=== PATIENT | male | born 1945 | race Caucasian/White ===

== ENCOUNTER → 2017-02-14 | Outpatient (CLI) | payer MEDICARE, OTHER ==
[~2017-02-14] MED LIST: ACET-1757 PO; ALLO100T30 PO; AMLO10TA4 PO; ASPI-496 PO; ATOR20TA PO; CARV3.1212 PO; CHOL-6 PO; CHOL200024 PO; CLON1TAB PO; COLC0.6T37 PO; DIPH25CA61 IV; DIPH25CA61 PO; DIVA500T2 PO; FLUT1AER INH; FURO-92 PO; FURO20TA3 PO; GUAI-110 PO; HYDR-3240 PO; HYDR-3307 PO; HYDR25TA6 PO; LISI-170 PO; MAGN250T8 PO; MAGN400T26 PO; MAGN400T7 PO; METO-93 PO; METO-95 PO; METO25TA2 PO; METO25TA91 PO; METO50TA4 PO; MORP60TA22 PO; NAFC2FRO IV; ONDA4TAB7 PO; PANT20TA3 PO; POLY17PO5 PO; POTA10TA11 PO; POTA20TA89 PO; RIOC1TAB PO; RIVA15TA PO; RIVA20TA PO; SERT50TA PO; SIMV20TA PO; TICA90TA PO; ZOLP10TA PO
== END ==
LOC: STAR 14:09
PROVIDERS: ATTEND Surgery Vascular Surgery
DX: Z01.818 Encounter for other preprocedural examination (principal); R94.31 Abnormal electrocardiogram [ECG] [EKG]
CPT/HCPCS: 93005

== ENCOUNTER 2017-02-19 06:10 | Day surgery (SDC) | payer MEDICARE, OTHER ==
[2017-02-14 14:49] VITALS: BP 177/92
[~2017-02-19] VITALS: Ht 175.3 cm; Wt 106.0 kg
[2017-02-19] MEDS ORDERED: LIDOCAINE 1%, 2ML ONE (07:01)
[2017-02-19] MEDS ORDERED: PROPOFOL 10 MG/ML, 20ML ONE (07:04)
[2017-02-19] MEDS ORDERED: GLYCOPYRROLATE 0.2MG/1ML, 5ML ONE (07:04)
[2017-02-19] MEDS ORDERED: DEXAMETHASONE 4 MG/ML, 1ML ONE (07:04)
[2017-02-19] MEDS ORDERED: ROCURONIUM 10 MG/ML,10ML ONE (07:04)
[2017-02-19] MEDS ORDERED: MIDAZOLAM 1 MG/ML, 2ML ONE (07:04)
[2017-02-19] MEDS ORDERED: CEFAZOLIN 1,000 MG ONE (07:04)
[2017-02-19] MEDS ORDERED: NEOSTIGMINE 1 MG/ML, 10ML ONE (07:04)
[2017-02-19] MEDS ORDERED: FENTANYL PF 250 MCG/5ML ONE (07:04)
[2017-02-19] MEDS ORDERED: SUCCINYLCHOLINE 20 MG/ML, 10ML ONE (07:04)
[2017-02-19] MEDS ORDERED: ONDANSETRON 2MG/ML, 2ML ONE (07:04)
[2017-02-19] MEDS ORDERED: LACTATED RINGERS 1,000 ML IV SCH (07:43)
[2017-02-19] MEDS ORDERED: BUPIVACAINE/PF 0.5% ONE (07:51)
[2017-02-19] MEDS ORDERED: EPINEPHRINE 1 MG/ML, 1ML ONE (07:52)
[2017-02-19] MEDS ORDERED: LIDOCAINE 1%, 2ML SQ PRN (08:00)
[2017-02-19] MEDS ORDERED: ACETAMINOPHEN 325 MG TABLET PO PRN (08:00)
[2017-02-19] MEDS ORDERED: HYDROmorphone 1 MG/ML, 1ML IV PRN (08:00)
[2017-02-19] MEDS ORDERED: HYDROcodone/APAP 7.5-325MG/15ML UDC PO PRN (08:00)
[2017-02-19] MEDS ORDERED: OXYcodone 5 MG/5 ML ORAL.SOL UDC PO PRN (08:00)
[2017-02-19] MEDS ORDERED: hydrALAzine 20 MG/ML, 1ML IV PRN (08:00)
[2017-02-19] MEDS ORDERED: FENTANYL PF 100 MCG/2ML IV PRN (08:00)
[2017-02-19] MEDS ORDERED: LABETALOL 5MG/ML, 20ML IV PRN (08:00)
[2017-02-19] MEDS ORDERED: ONDANSETRON 2MG/ML, 2ML IVPush PRN (08:00)
[2017-02-19] MEDS ORDERED: HYDROcodone/APAP 7.5-325MG/15ML UDC ONE (09:14)
[2017-02-19] MEDS ORDERED: FENTANYL PF 100 MCG/2ML ONE (09:14)
[2017-02-19] MEDS ORDERED: LABETALOL 5MG/ML, 20ML ONE (09:19)
== END 2017-02-19 13:10 ==
LOC: OUT 06:10
PROVIDERS: ATTEND Surgery Vascular Surgery
DX: S70.12XA Contusion of left thigh, initial encounter (principal); E78.00 Pure hypercholesterolemia, unspecified; I10 Essential (primary) hypertension; X58.XXXA Exposure to other specified factors, initial encounter; Y93.89 Activity, other specified; Y92.89 Other specified places as the place of occurrence of the external cause; Y99.8 Other external cause status; Z98.890 Other specified postprocedural states; Z95.0 Presence of cardiac pacemaker; Z72.89 Other problems related to lifestyle; Z87.891 Personal history of nicotine dependence
CPT/HCPCS: 27301; 87070; 87075; 87205; J0171; J0330; J0690; J1100; J2250; J2405; J2704; J3010; J3490; J7120; J2710

== ENCOUNTER 2017-10-10 15:25 | Inpatient (IN) | payer MEDICARE, OTHER ==
[~2017-10-10] VITALS: Ht 175.3 cm; Wt 103.0 kg
[2017-10-10 16:45] LABS: BASOPHILS # (AUTO) 0.02 x10^3/uL (0-0.1); BASOPHILS % (AUTO) 0 % (0-1); EOSINOPHILS # (AUTO) 0.15 x10^3/uL (0-0.4); EOSINOPHILS % (AUTO) 2 % (1-7); LYMPHOCYTES # (AUTO) 0.85 x10^3/uL (1-3.4); LYMPHOCYTES % (AUTO) 9 % (22-44); MD NO; MEAN CORPUSCULAR HEMOGLOBIN 34.4 pg (27.5-34.5); MEAN CORPUSCULAR HGB CONC 33.6 g/dL (33.2-36.2); MEAN CORPUSCULAR VOLUME 102.3 fL (81-97); MEAN PLATELET VOLUME 8.8 fL (7.4-10.4); MONOCYTES # (AUTO) 0.82 x10^3/uL (0.2-0.8); MONOCYTES % (AUTO) 9 % (2-9); NEUTROPHILS # (AUTO) 7.64 x10^3/uL (1.8-6.8); NEUTROPHILS % (AUTO) 81 % (42-75); PLATELET COUNT 140 x10^3/uL (130-400); RED BLOOD COUNT 3.68 x10^6/uL (4.38-5.82)
[2017-10-10 16:56] LABS: ALBUMIN 3.4 g/dL (3.4-5.0); ANION GAP 7 mmol/L (5-15); CALCIUM 9.9 mg/dL (8.5-10.1); CHLORIDE 108 mmol/L (98-107)
[2017-10-10 17:01] LABS: CREATININE 1.27 mg/dL (0.7-1.3); TROPONIN I < 0.015 ng/mL (0.000-0.045)
[2017-10-10] MEDS ORDERED: ACETAMINOPHEN 325 MG TABLET PO PRN (18:00)
[2017-10-10 19:30] VITALS: BP 125/71
[2017-10-10 20:00] VITALS: BP 125/71
[2017-10-10] MEDS: SODIUM CHLORIDE 0.9% 1,000 ML IV SCH (20:09)
[2017-10-10] MEDS: HYDROcodone/APAP 10/325 MG TABLET PO PRN (20:40)
[2017-10-10 21:26] LABS: TROPONIN I < 0.015 ng/mL (0.000-0.045)
[2017-10-10 22:19] VITALS: BP 162/91
[2017-10-10] MEDS: METOPROLOL SUCCINATE 50 MG TAB.ER.24H PO SCH (22:39)
[2017-10-10] MEDS: DIVALPROEX 500 MG TABLET.DR PO SCH (22:39)
[2017-10-10] MEDS: ATORVASTATIN 20 MG TABLET PO SCH (22:39)
[2017-10-10] MEDS: RIVAROXABAN 15 MG TABLET PO SCH (23:28)
[2017-10-10] MEDS: RIOCIGUAT PO SCH (23:29)
[2017-10-10] MEDS: ASPIRIN 81 MG TABLET EC PO SCH (23:29)
[2017-10-11 02:00] VITALS: BP 145/85
[2017-10-11 03:27] LABS: BASOPHILS # (AUTO) 0.02 x10^3/uL (0-0.1); BASOPHILS % (AUTO) 0 % (0-1); EOSINOPHILS # (AUTO) 0.42 x10^3/uL (0-0.4); EOSINOPHILS % (AUTO) 6 % (1-7); LYMPHOCYTES % (AUTO) 12 % (22-44); MD NO; MEAN CORPUSCULAR HEMOGLOBIN 33.5 pg (27.5-34.5); MEAN CORPUSCULAR HGB CONC 32.8 g/dL (33.2-36.2); MEAN CORPUSCULAR VOLUME 102.2 fL (81-97); MONOCYTES # (AUTO) 0.96 x10^3/uL (0.2-0.8); MONOCYTES % (AUTO) 13 % (2-9); NEUTROPHILS # (AUTO) 5.17 x10^3/uL (1.8-6.8); NEUTROPHILS % (AUTO) 69 % (42-75); PLATELET COUNT 110 x10^3/uL (130-400); RED BLOOD COUNT 3.48 x10^6/uL (4.38-5.82); RED CELL DISTRIBUTION WIDTH 14.9 % (9.4-14.8)
[2017-10-11 03:36] LABS: ALBUMIN 2.8 g/dL (3.4-5.0); CALCIUM 9.2 mg/dL (8.5-10.1); CHLORIDE 111 mmol/L (98-107)
[2017-10-11 03:42] LABS: ALANINE AMINOTRANSFERASE 7 U/L (12-78); ALKALINE PHOSPHATASE 64 U/L (45-117); ANION GAP 5 mmol/L (5-15); BILIRUBIN,TOTAL 0.6 mg/dL (0.2-1.0); CHOL/HDL RATIO 1.8; CHOLESTEROL, TOTAL 78 mg/dL (140-239); CREATININE 0.97 mg/dL (0.7-1.3); HDL CHOL % 55 % (26-37); HDL CHOLESTEROL (DIRECT) 43 mg/dL (40-60); LDL CHOLESTEROL,CALCULATED 26 mg/dL (54-169); LDL/HDL RATIO 0.6 (0.5-3.0); TOTAL PROTEIN 6.2 g/dL (6.4-8.2); TRIGLYCERIDES 45 mg/dL (50-200); TROPONIN I < 0.015 ng/mL (0.000-0.045); VLDL CHOLESTEROL 9 mg/dL (0-25)
[2017-10-11 07:00] VITALS: BP 154/79
[2017-10-11] MEDS: RIOCIGUAT PO SCH (09:00)
[2017-10-11] MEDS ORDERED: FLUTICASONE/VILANTEROL 100-25MCG/INH INH SCH (09:00)
[2017-10-11] MEDS ORDERED: RIOCIGUAT PO SCH (09:00)
[2017-10-11] MEDS ORDERED: RIVAROXABAN 15 MG TABLET PO SCH (09:00)
[2017-10-11] MEDS ORDERED: ASPIRIN 81 MG TABLET EC PO SCH (09:00)
[2017-10-11] MEDS: HYDROcodone/APAP 10/325 MG TABLET PO PRN ×3 (09:51→22:11)
[2017-10-11] MEDS ORDERED: CALCIUM CARBONATE 500 MG TAB.CHEW PO PRN (10:30)
[2017-10-11] MEDS: CHOLECALCIFEROL 1,000 UNIT TABLET PO SCH (10:35)
[2017-10-11] MEDS: SERTRALINE 50MG TABLET PO SCH (10:35)
[2017-10-11] MEDS: METOPROLOL SUCCINATE 50 MG TAB.ER.24H PO SCH ×2 (10:36→20:57)
[2017-10-11] MEDS: ALLOPURINOL 100 MG TABLET PO SCH (10:36)
[2017-10-11] MEDS: DIVALPROEX 500 MG TABLET.DR PO SCH ×2 (10:37→20:57)
[2017-10-11 14:20] VITALS: BP 133/81
[2017-10-11 20:00] VITALS: BP_SYST 100; BP_SYST 102; BP_SYST 97; BP_DIAS 57; BP_DIAS 60; BP_DIAS 65
[2017-10-11] MEDS: RIOCIGUAT HOMEMEDPO SCH (20:56)
[2017-10-11] MEDS: ASPIRIN 81 MG TABLET EC PO SCH (20:57)
[2017-10-11] MEDS: ATORVASTATIN 20 MG TABLET PO SCH (20:57)
[2017-10-11] MEDS: RIVAROXABAN 15 MG TABLET PO SCH (20:57)
[2017-10-11] MEDS: SODIUM CHLORIDE 0.9% 1,000 ML IV SCH (21:40)
[2017-10-12 01:04] VITALS: BP 118/67
[2017-10-12] MEDS: HYDROcodone/APAP 10/325 MG TABLET PO PRN (04:13)
[2017-10-12 07:54] VITALS: BP 162/81
[2017-10-12] MEDS: SERTRALINE 50MG TABLET PO SCH (08:37)
[2017-10-12] MEDS: DIVALPROEX 500 MG TABLET.DR PO SCH (08:37)
[2017-10-12] MEDS: METOPROLOL SUCCINATE 50 MG TAB.ER.24H PO SCH (08:38)
[2017-10-12] MEDS: CHOLECALCIFEROL 1,000 UNIT TABLET PO SCH (08:38)
[2017-10-12] MEDS: ALLOPURINOL 100 MG TABLET PO SCH (08:38)
[2017-10-12] MEDS: RIOCIGUAT HOMEMEDPO SCH (08:39)
[2017-10-12 09:22] VITALS: BP 112/70
== END 2017-10-12 15:01 | disposition home health service (06) | DRG 74 ==
LOC: ED 17:10 → EDIP 17:11 → ED 18:29 → 5SO 19:48 → DCLOUNGE 10-12 14:44
PROVIDERS: ADMIT Internal Medicine; ATTEND Hospitalist
PROC: 2W3RX1Z Immobilization of Left Lower Leg using Splint (ICD-10-PCS; principal; 2017-10-10)
DX: G90.8 Other disorders of autonomic nervous system (principal); F11.20 Opioid dependence, uncomplicated; D68.69 Other thrombophilia; I50.22 Chronic systolic (congestive) heart failure; S82.832A Other fracture of upper and lower end of left fibula, initial encounter for closed fracture; R55 Syncope and collapse; G47.33 Obstructive sleep apnea (adult) (pediatric); E78.5 Hyperlipidemia, unspecified; F32.9 Major depressive disorder, single episode, unspecified; G40.909 Epilepsy, unspecified, not intractable, without status epilepticus; G89.29 Other chronic pain; I08.1 Rheumatic disorders of both mitral and tricuspid valves; I11.0 Hypertensive heart disease with heart failure; I25.10 Atherosclerotic heart disease of native coronary artery without angina pectoris; I27.21 Secondary pulmonary arterial hypertension; I25.5 Ischemic cardiomyopathy; I27.81 Cor pulmonale (chronic); I48.0 Paroxysmal atrial fibrillation; M11.262 Other chondrocalcinosis, left knee; I49.5 Sick sinus syndrome; M10.9 Gout, unspecified; M19.90 Unspecified osteoarthritis, unspecified site; N40.0 Benign prostatic hyperplasia without lower urinary tract symptoms; Z96.611 Presence of right artificial shoulder joint; Z96.612 Presence of left artificial shoulder joint; Z95.0 Presence of cardiac pacemaker; Z95.5 Presence of coronary angioplasty implant and graft; Z88.6 Allergy status to analgesic agent; Z79.01 Long term (current) use of anticoagulants; W18.39XA Other fall on same level, initial encounter; Z86.73 Personal history of transient ischemic attack (TIA), and cerebral infarction without residual deficits; Z86.711 Personal history of pulmonary embolism; Z87.891 Personal history of nicotine dependence; Z82.49 Family history of ischemic heart disease and other diseases of the circulatory system; Y93.89 Activity, other specified; Y92.89 Other specified places as the place of occurrence of the external cause; Y99.8 Other external cause status
CPT/HCPCS: 36415; 70450; 71045; 80048; 80053; 80061; 82040; 83735; 84100; 84443; 84484; 85025; 93005; 93306; 99285; G0378; J7030

== ENCOUNTER → 2018-03-06 | Outpatient (CLI) | payer MEDICARE, OTHER ==
[~2018-03-06] MED LIST changes: +REGADENOSON 0.4 MG/5 ML SYRINGE ONE
== END | disposition home or self-care (01) ==
LOC: CFH 11:57
PROVIDERS: ATTEND Internal Medicine Cardiovascular Disease
DX: I25.10 Atherosclerotic heart disease of native coronary artery without angina pectoris (principal); Z95.5 Presence of coronary angioplasty implant and graft
CPT/HCPCS: 78452; 93017; A9502; J2785